=== PATIENT | male | born 2000 | race Caucasian/White ===

== ENCOUNTER 2021-06-12 06:40 | Observation (INO) | payer BC, SELFPAY ==
[2021-06-12 09:26] VITALS: BMI 26.7
[2021-06-12] MEDS ORDERED: Apixaban 5 MG TAB PO SCH ×2 (09:30→21:00)
[2021-06-12] MEDS ORDERED: Metoprolol Tartrate 25 MG TAB PO SCH ×2 (09:30→21:00)
[2021-06-12] MEDS ORDERED: Ondansetron PF 4 MG/2 ML Vial IVP PRN (09:44)
[2021-06-12] MEDS ORDERED: Propafenone HCl 150 MG TAB PO SCH (10:00)
[2021-06-12 12:53] VITALS: BP 112/85; TEMP 98.5
== END 2021-06-12 15:50 | disposition home or self-care (01) ==
LOC: INTOOBSV 06:40 → CSHTELE 06:40 → UNDOADMOB 06:40 → CSHTELE 09:51
PROVIDERS: ADMIT Family Medicine; ATTEND Internal Medicine
DX: I48.91 Unspecified atrial fibrillation (principal)
CPT/HCPCS: 93005; 93010; 93306; 96374; G0378; J2405